=== PATIENT | male | born 1970 | race Caucasian/White ===

== ENCOUNTER 2016-06-07 10:22 | Emergency (ER) | payer OTHER ==
[~2016-06-07] VITALS: Ht 190.5 cm; Wt 111.1 kg
[2016-06-07 10:25] VITALS: BP_SYST 146
[2016-06-07] MEDS ORDERED: KETOROLAC TROMETHAMINE 60 MG/2 ML VIAL IM ONE (10:45)
[2016-06-07 11:00] VITALS: BP_SYST 138
== END 2016-06-07 11:00 | disposition home or self-care (01) ==
LOC: SED 10:22
DX: M54.42 Lumbago with sciatica, left side (principal); I10 Essential (primary) hypertension
CPT/HCPCS: 96372; 99283; J1885